=== PATIENT | female | born 1960 | race Two or more races ===

== ENCOUNTER 2023-01-05 08:58 | Inpatient (IN) | payer OTHER ==
[~2023-01-05] VITALS: Ht 152.4 cm; Wt 68.0 kg
[2023-01-05 10:06] LABS: HEMATOCRIT 43.3 % (36.0-45.00); HEMOGLOBIN 14.5 g/dL (12.0-15.00); MEAN CELL VOLUME 99.4 fL (80.00-100.00); MEAN CORPUSCULAR HEMOGLOBIN 33.2 pg (27.00-32.0); MEAN CORPUSCULAR HGB CONC 33.4 g/dl (32.0-36.0); PLATELET COUNT 369 K/uL (150-450); RED BLOOD COUNT 4.36 M/uL (4.00-6.00); RED CELL DISTRIBUTION WIDTH 13.7 % (11.5-14.5)
[2023-01-05 10:11] LABS: ERYTHROCYTE SEDIMENTATION RATE 38 mm/hr
[2023-01-05 10:20] LABS: ABG PH 7.267 (7.35-7.45); ABG PO2 115.5 mmHg (80-100); ABG pCO2 25.8 mmHg (35-45); BASE EXCESS -13.6 mmol/l; BICARBONATE 11.5 mmol/l (23-25); SaO2 97.4 %; Tco2 12.3 mmol/l; allen test SATISFACTORY; o2 21 %; puncture site RADIAL RIGHT
[2023-01-05 10:24] LABS: INR 0.98; PARTIAL THROMBOPLASTIN TIME 25.4 SECONDS (22.0-34.0); PROTHROMBIN TIME 10.3 SECONDS (9.0-11.5)
[2023-01-05 10:50] LABS: ALBUMIN 3.3 gm/dL (3.4-5.0); BILIRUBIN TOTAL 0.44 mg/dL (0.3-1.2); CALCIUM 9.5 mg/dL (8.5-10.1); CREATININE SERUM 0.9 mg/dL (0.55-1.02); GFR 63.24; POTASSIUM 3.36 mEq/L (3.5-5.1); TOTAL PROTEIN 6.3 gm/dL (6.4-8.2)
[2023-01-05 10:55] LABS: URINE APPEARANCE Clear; URINE BILIRRUBIN Negative (NEGATIVE); URINE BLOOD Small; URINE COLOR Yellow; URINE LEUKOCYTE Negative; URINE NITRATE Negative; URINE UROBILINOGEN 0.2 E.U./dl
[2023-01-05 10:58] LABS: C-REACTIVE PROTEIN 0.96 MG/DL (0.00-0.29)
[2023-01-05 10:59] LABS: URINE BACTERIA 9.6 uL (0.0-1933); URINE EPITHELIAL CELLS 8.7 uL (0.0-38.8); URINE RBC 21.6 uL (0.0-20.8); URINE WBC 9.3 uL (0.0-23.2)
[2023-01-05 11:15] LABS: URINE GLUCOSE >=1000 MG/DL (NEGATIVE); URINE PROTEIN 100 (NEGATIVE)
[2023-01-05 23:28] LABS: CALCIUM 9.2 mg/dL (8.5-10.1); CREATININE SERUM 0.76 mg/dL (0.55-1.02); GFR 76.86; POTASSIUM 3.08 mEq/L (3.5-5.1)
[2023-01-06 06:17] LABS: URINE APPEARANCE Clear; URINE BILIRRUBIN Negative (NEGATIVE); URINE BLOOD Moderate; URINE COLOR Yellow; URINE LEUKOCYTE Negative; URINE NITRATE Negative; URINE UROBILINOGEN 0.2 E.U./dl
[2023-01-06 06:21] LABS: URINE BACTERIA 9.6 uL (0.0-1933); URINE EPITHELIAL CELLS 7.3 uL (0.0-38.8); URINE RBC 33.7 uL (0.0-20.8); URINE WBC 7.1 uL (0.0-23.2)
[2023-01-06 07:06] LABS: COCAINE NEGATIVE (NEGATIVE); METHADONE NEGATIVE (NEGATIVE); OPIATES NEGATIVE (NEGATIVE); THC ( Cannabinoids) NEGATIVE (NEGATIVE)
[2023-01-06 07:23] LABS: URINE GLUCOSE >=1000 MG/DL (NEGATIVE); URINE PROTEIN 100 (NEGATIVE)
[2023-01-06 07:40] LABS: ALBUMIN 2.9 gm/dL (3.4-5.0); BILIRUBIN TOTAL 0.49 mg/dL (0.3-1.2); CALCIUM 9.3 mg/dL (8.5-10.1); CREATININE SERUM 0.85 mg/dL (0.55-1.02); GFR 67.55; GLOBULINA 3.4 G/DL (2.4-3.5); TOTAL PROTEIN 6.3 gm/dL (6.4-8.2)
[2023-01-06 08:04] LABS: ABG PH 7.338 (7.35-7.45); ABG PO2 95.8 mmHg (80-100); ABG pCO2 24.9 mmHg (35-45); BASE EXCESS -10.7 mmol/l; BICARBONATE 13.1 mmol/l (23-25); SaO2 96.6 %; Tco2 13.8 mmol/l; allen test SATISFACTORY; o2 21 %; puncture site RADIAL RIGHT
[2023-01-06 09:37] LABS: TSH 0.04 uIU/mL (0.358-3.74)
[2023-01-06 09:38] LABS: POTASSIUM 2.8 mEq/L (3.5-5.1)
[2023-01-06 16:49] LABS: CALCIUM 9.8 mg/dL (8.5-10.1); CREATININE SERUM 0.76 mg/dL (0.55-1.02); GFR 76.86; MAGNESIUM 1.9 mg/dL (1.8-2.4)
[2023-01-06 18:00] LABS: POTASSIUM 2.55 mEq/L (3.5-5.1)
[2023-01-07 09:21] LABS: HEMATOCRIT 40.9 % (36.0-45.00); HEMOGLOBIN 13.7 g/dL (12.0-15.00); MEAN CELL VOLUME 96.8 fL (80.00-100.00); MEAN CORPUSCULAR HEMOGLOBIN 32.4 pg (27.00-32.0); MEAN CORPUSCULAR HGB CONC 33.5 g/dl (32.0-36.0); PLATELET COUNT 264 K/uL (150-450); RED BLOOD COUNT 4.23 M/uL (4.00-6.00); RED CELL DISTRIBUTION WIDTH 13.4 % (11.5-14.5)
[2023-01-07 10:00] LABS: CALCIUM 9.4 mg/dL (8.5-10.1); CREATININE SERUM 0.58 mg/dL (0.55-1.02)
[2023-01-07 10:53] LABS: POTASSIUM 2.71 mEq/L (3.5-5.1)
[2023-01-08 11:58] LABS: CALCIUM 9.1 mg/dL (8.5-10.1); CREATININE SERUM 0.77 mg/dL (0.55-1.02); GFR 75.71; POTASSIUM 3.09 mEq/L (3.5-5.1)
[2023-01-09 06:48] LABS: HEMATOCRIT 41.7 % (36.0-45.00); HEMOGLOBIN 14.4 g/dL (12.0-15.00); MEAN CELL VOLUME 96.6 fL (80.00-100.00); MEAN CORPUSCULAR HEMOGLOBIN 33.3 pg (27.00-32.0); MEAN CORPUSCULAR HGB CONC 34.4 g/dl (32.0-36.0); PLATELET COUNT 244 K/uL (150-450); RED BLOOD COUNT 4.32 M/uL (4.00-6.00); RED CELL DISTRIBUTION WIDTH 13.1 % (11.5-14.5)
[2023-01-09 07:54] LABS: CALCIUM 9.3 mg/dL (8.5-10.1); CREATININE SERUM 0.32 mg/dL (0.55-1.02); GFR 208.56; POTASSIUM 3.02 mEq/L (3.5-5.1)
[2023-01-10 12:50] LABS: CALCIUM 9.7 mg/dL (8.5-10.1); CREATININE SERUM 0.36 mg/dL (0.55-1.02); GFR 182.05; MAGNESIUM 1.6 mg/dL (1.8-2.4); POTASSIUM 3.46 mEq/L (3.5-5.1)
[2023-01-11 06:50] LABS: MEAN CELL VOLUME 98.1 fL (80.00-100.00); MEAN CORPUSCULAR HEMOGLOBIN 32.8 pg (27.00-32.0); MEAN CORPUSCULAR HGB CONC 33.4 g/dl (32.0-36.0); PLATELET COUNT 307 K/uL (150-450); RED BLOOD COUNT 4.28 M/uL (4.00-6.00); RED CELL DISTRIBUTION WIDTH 12.9 % (11.5-14.5)
[2023-01-11 07:18] LABS: CALCIUM 9.8 mg/dL (8.5-10.1); CREATININE SERUM 0.35 mg/dL (0.55-1.02); GFR 188.07; POTASSIUM 3.9 mEq/L (3.5-5.1)
[2023-01-13 05:14] LABS: HEMATOCRIT 38.7 % (36.0-45.00); MEAN CELL VOLUME 97.7 fL (80.00-100.00); MEAN CORPUSCULAR HEMOGLOBIN 32.7 pg (27.00-32.0); MEAN CORPUSCULAR HGB CONC 33.5 g/dl (32.0-36.0); PLATELET COUNT 391 K/uL (150-450); RED BLOOD COUNT 3.96 M/uL (4.00-6.00); RED CELL DISTRIBUTION WIDTH 13.2 % (11.5-14.5)
[2023-01-13 05:38] LABS: CALCIUM 9.5 mg/dL (8.5-10.1); CREATININE SERUM 0.35 mg/dL (0.55-1.02); GFR 188.07; POTASSIUM 3.82 mEq/L (3.5-5.1)
[2023-01-18 15:14] LABS: PH,URINE 6.5 (5.0-8.0); URINE APPEARANCE Clear; URINE BILIRRUBIN Negative (NEGATIVE); URINE BLOOD Trace; URINE COLOR Yellow; URINE LEUKOCYTE Moderate; URINE NITRATE Negative; URINE PROTEIN Trace (NEGATIVE); URINE UROBILINOGEN 0.2 E.U./dl
[2023-01-18 15:16] LABS: URINE BACTERIA 2681.1 uL (0.0-1933); URINE RBC 5.1 uL (0.0-20.8); URINE WBC 112.3 uL (0.0-23.2)
[2023-01-18 15:29] LABS: URINE GLUCOSE 250 MG/DL (NEGATIVE)
[2023-01-18 15:35] LABS: HEMATOCRIT 41.8 % (36.0-45.00); HEMOGLOBIN 13.5 g/dL (12.0-15.00); MEAN CELL VOLUME 97.6 fL (80.00-100.00); MEAN CORPUSCULAR HEMOGLOBIN 31.6 pg (27.00-32.0); MEAN CORPUSCULAR HGB CONC 32.3 g/dl (32.0-36.0); PLATELET COUNT 563 K/uL (150-450); RED BLOOD COUNT 4.29 M/uL (4.00-6.00)
[2023-01-18 15:59] LABS: ALBUMIN 2.5 gm/dL (3.4-5.0); BILIRUBIN TOTAL 0.37 mg/dL (0.3-1.2); CALCIUM 9.9 mg/dL (8.5-10.1); CREATININE SERUM 0.65 mg/dL (0.55-1.02); GFR 92.06; POTASSIUM 3.55 mEq/L (3.5-5.1); TOTAL PROTEIN 5.5 gm/dL (6.4-8.2)
[2023-01-20 06:21] LABS: HEMATOCRIT 40.7 % (36.0-45.00); HEMOGLOBIN 13.2 g/dL (12.0-15.00); MEAN CELL VOLUME 97.4 fL (80.00-100.00); MEAN CORPUSCULAR HEMOGLOBIN 31.7 pg (27.00-32.0); MEAN CORPUSCULAR HGB CONC 32.5 g/dl (32.0-36.0); PLATELET COUNT 465 K/uL (150-450); RED BLOOD COUNT 4.17 M/uL (4.00-6.00); RED CELL DISTRIBUTION WIDTH 13.2 % (11.5-14.5)
== END 2023-01-20 18:47 | disposition home or self-care (01) | DRG 637 ==
LOC: ER 08:58 → ICU-2 15:31 → ICU 01-06 17:30 → MEDI 01-11 21:04
PROVIDERS: Emergency Medicine; Internal Medicine Endocrinology, Diabetes & Metabolism; Internal Medicine Infectious Disease; ADMIT Internal Medicine; ATTEND Internal Medicine
PROC: B030ZZZ Magnetic Resonance Imaging (MRI) of Brain (ICD-10-PCS; principal; 2023-01-05)
PROC: BW28ZZZ Computerized Tomography (CT Scan) of Head (ICD-10-PCS; 2023-01-05)
PROC: B24BZZZ Ultrasonography of Heart with Aorta (ICD-10-PCS; 2023-01-05)
PROC: BW28ZZZ Computerized Tomography (CT Scan) of Head (ICD-10-PCS; 2023-01-08)
PROC: 4A12X4Z Monitoring of Cardiac Electrical Activity, External Approach (ICD-10-PCS; 2023-01-12)
PROC: BW28ZZZ Computerized Tomography (CT Scan) of Head (ICD-10-PCS; 2023-01-16)
DX: E11.10 Type 2 diabetes mellitus with ketoacidosis without coma (principal); G93.41 Metabolic encephalopathy; I63.532 Cerebral infarction due to unspecified occlusion or stenosis of left posterior cerebral artery; E86.0 Dehydration; R41.82 Altered mental status, unspecified; Z79.4 Long term (current) use of insulin; E87.6 Hypokalemia; Z20.822 Contact with and (suspected) exposure to COVID-19
CPT/HCPCS: 70553

== ENCOUNTER 2023-01-23 22:05 | Emergency (ER) | payer OTHER ==
[~2023-01-23] VITALS: Ht 162.6 cm; Wt 68.0 kg
[2023-01-24 00:28] LABS: HEMOGLOBIN 14.4 g/dL (12.0-15.00); MEAN CELL VOLUME 98.3 fL (80.00-100.00); MEAN CORPUSCULAR HEMOGLOBIN 32.9 pg (27.00-32.0); MEAN CORPUSCULAR HGB CONC 33.4 g/dl (32.0-36.0); PLATELET COUNT 494 K/uL (150-450); RED BLOOD COUNT 4.38 M/uL (4.00-6.00); RED CELL DISTRIBUTION WIDTH 13.2 % (11.5-14.5)
[2023-01-24 00:32] LABS: URINE APPEARANCE Clear; URINE BILIRRUBIN Negative (NEGATIVE); URINE BLOOD Negative; URINE COLOR Yellow; URINE LEUKOCYTE Negative; URINE NITRATE Negative; URINE PROTEIN Trace (NEGATIVE); URINE UROBILINOGEN 0.2 E.U./dl
[2023-01-24 00:35] LABS: URINE RBC 3.3 uL (0.0-20.8); URINE WBC 3.5 uL (0.0-23.2)
[2023-01-24 00:48] LABS: INR 1.07; PROTHROMBIN TIME 11.2 SECONDS (9.0-11.5)
[2023-01-24 00:50] LABS: CALCIUM 10.2 mg/dL (8.5-10.1); CREATININE SERUM 0.68 mg/dL (0.55-1.02); GFR 87.39; POTASSIUM 3.35 mEq/L (3.5-5.1)
[2023-01-24 01:28] LABS: ABG PH 7.445 (7.35-7.45); ABG PO2 84.5 mmHg (80-100); ABG pCO2 48.4 mmHg (35-45); BASE EXCESS 7.2 mmol/l; BICARBONATE 32.6 mmol/l (23-25)
[2023-01-24 01:34] LABS: URINE BACTERIA 3.7 uL (0.0-1933); URINE GLUCOSE >=1000 MG/DL (NEGATIVE)
[2023-01-24 03:14] LABS: o2 21 %; puncture site RADIAL LEFT
[2023-01-24 03:15] LABS: allen test SATISFACTORY
== END 2023-01-24 04:34 | disposition home or self-care (01) ==
LOC: ER 22:05
PROVIDERS: General Practice
DX: E11.65 Type 2 diabetes mellitus with hyperglycemia (principal); I10 Essential (primary) hypertension; Z86.73 Personal history of transient ischemic attack (TIA), and cerebral infarction without residual deficits; F03.90 Unspecified dementia, unspecified severity, without behavioral disturbance, psychotic disturbance, mood disturbance, and anxiety

== ENCOUNTER 2023-02-12 15:04 | Emergency (ER) | payer OTHER ==
[~2023-02-12] VITALS: Ht 162.6 cm; Wt 65.8 kg
[2023-02-12] MEDS ORDERED: RESTORIL15 MG (15:21)
[2023-02-12] MEDS ORDERED: METFORMIN HCL500 M4 (15:21)
[2023-02-12] MEDS ORDERED: LOSARTAN POTASS50 MG (15:22)
[2023-02-12] MEDS ORDERED: HUMULIN N100 UNIT/2 (15:22)
[2023-02-12] MEDS ORDERED: FAMOTIDINE20 MG (15:22)
[2023-02-12] MEDS ORDERED: CLOPIDOGREL BIS75 MG (15:22)
[2023-02-12] MEDS ORDERED: DONEPEZIL HCL10 MG (15:22)
[2023-02-12] MEDS ORDERED: METOPROLOL SUCC50 MG (15:22)
[2023-02-12] MEDS ORDERED: ATORVASTATIN CA40 MG (15:22)
[2023-02-12 16:53] LABS: HEMATOCRIT 37.5 % (36.0-45.00); HEMOGLOBIN 12.3 g/dL (12.0-15.00); MEAN CELL VOLUME 97.5 fL (80.00-100.00); MEAN CORPUSCULAR HEMOGLOBIN 31.9 pg (27.00-32.0); MEAN CORPUSCULAR HGB CONC 32.7 g/dl (32.0-36.0); PLATELET COUNT 495 K/uL (150-450); RED BLOOD COUNT 3.85 M/uL (4.00-6.00); RED CELL DISTRIBUTION WIDTH 13.8 % (11.5-14.5)
[2023-02-12 17:15] LABS: ALBUMIN 2.9 gm/dL (3.4-5.0); BILIRUBIN TOTAL 0.52 mg/dL (0.3-1.2); CALCIUM 9.5 mg/dL (8.5-10.1); CREATININE SERUM 0.74 mg/dL (0.55-1.02); GFR 79.26; GLOBULINA 3.6 G/DL (2.4-3.5); POTASSIUM 3.85 mEq/L (3.5-5.1); TOTAL PROTEIN 6.5 gm/dL (6.4-8.2)
== END 2023-02-13 07:15 | disposition home or self-care (01) ==
LOC: ER 15:04
PROVIDERS: General Practice
DX: K59.00 Constipation, unspecified (principal); I10 Essential (primary) hypertension; Z86.73 Personal history of transient ischemic attack (TIA), and cerebral infarction without residual deficits; E11.9 Type 2 diabetes mellitus without complications; Z79.4 Long term (current) use of insulin